=== PATIENT | female | born 1990 | race Caucasian/White ===

== ENCOUNTER 2016-10-26 10:51 | Outpatient (CLI) | payer OTHER ==
[~2016-10-26] VITALS: Ht 160 cm; Wt 68.4 kg
[~2016-10-26 10:51] MED LIST: ACET1TAB40 PO; CEPH-443 PO; PRED20TA PO
[2016-10-26 11:08] VITALS: BP 115/68; PULSE 93; RESP 18; Ht 160 cm; Wt 68.4 kg
[2016-10-26] MEDS ORDERED: PRENAT PO (11:10)
[2016-10-26] MEDS ORDERED: ONDANSETRON 4 MG INJ IV STA (11:16)
[2016-10-26] MEDS ORDERED: LACTATED RINGER'S 1,000 ML IV SCH (11:30)
[2016-10-26 11:52] LABS: ADD UMIC YES; UR BILIRUBIN (Dip) NEGATIVE (NEGATIVE); UR BLOOD (Dip) NEGATIVE (NEGATIVE); UR CLARITY CLEAR (CLEAR); UR COLOR YELLOW (YELLOW); UR GLUCOSE (Dip) NEGATIVE (NEGATIVE); UR KETONES (Dip) NEGATIVE (NEGATIVE); UR LEUKOCYTE ESTERASE (Dip) 1+ Leu/ul (NEGATIVE); UR NITRITE (Dip) NEGATIVE (NEGATIVE); UR TOTAL PROTEIN (Dip) NEGATIVE (NEGATIVE); UR UROBILINOGEN (Dip) 0.2 E.U./dL mg/dL (NEGATIVE)
[2016-10-26 11:54] LABS: UR SQUAMOUS EPITHELIAL CELL OCCASIONAL /HPF (FEW)
[2016-10-26 11:58] LABS: ABNORMAL IP MESSAGE 1; HEMOGLOBIN 12.2 g/dl (12.0-16.0); MEAN CORPUSCULAR HEMOGLOBIN 29.8 pg (29.0-33.0); MEAN CORPUSCULAR HGB CONC 32.1 g/dl (32.0-37.0); MEAN CORPUSCULAR VOLUME 92.7 fl (82.0-101.0); MEAN PLATELET VOLUME 9.5 fl (7.4-10.4); PLATELET COUNT 185 10^3/UL (140-415); POSITIVE DIFF @See below; RED CELL DISTRIBUTION WIDTH 13.4 % (11.5-14.5); WHITE BLOOD COUNT 11.8 10^3/ul (4.8-10.8)
[2016-10-26 12:23] LABS: ALBUMIN 3.5 g/dl (3.3-4.9); ALBUMIN/GLOBULIN RATIO 1.16; BILIRUBIN,INDIRECT 0.5 mg/dl (0-1.1); BILIRUBIN,TOTAL 0.5 mg/dl (0.2-1.3); CALCIUM 8.8 mg/dl (8.4-10.2); CREATININE 0.66 mg/dl (0.44-1.00); POTASSIUM 4.6 mmol/L (3.5-5.1); TOTAL PROTEIN 6.5 g/dl (6.1-8.1)
[2016-10-26 13:05] LABS: EOSINOPHILS % (M) 1 % (0-7); MONOCYTES % (M) 3 % (0-11); PLATELET ESTIMATE NORMAL
--- NOTE | 2016-10-26 16:36 | QN ---
Documentation Comment g1po 26 weeks co of N?V x6 hours vss exam wnl labs ua wnl a/p iup 26 weeks NV resolved dc home SONYA ROCHE MD Oct 26, 2016 16:36
--- NOTE | 2016-10-26 18:43 | TRIAGE ---
OB Triage Datetime Report Generated by CPN: 10/26/2016 18:43 Datetime: 10/26/2016 13:18 Stage of : OB Triage Datetime: 10/26/2016 13:08 Labor Evaluation Frequency: 0 Monitor Mode: External Pattern: Normal: <= 5 Contractions in 10 Minutes Resting Tone [place]: Relaxed Heart Rate FHR Baseline Rate: 135 Monitor Mode: External US Variability: Moderate 6-25 bpm Accelerations: 10X10 Decelerations: None Category: Category I Pain Assessment Pain Scale: 0 Pain Presence: None/Denies Pain Type: N/A Pain Goal: 3 Pain Relief Measures: Comfort Measures Datetime: 10/26/2016 12:00 Heart Rate FHR Baseline Rate: 155 Monitor Mode: External US Variability: Moderate 6-25 bpm Accelerations: 10X10 Decelerations: None Category: Category I Pain Assessment Pain Scale: 8 Pain Presence: Constant Pain Type: Sharp Pain Location: Abdomen Pain Goal: 3 Pain Relief Measures: Comfort Measures Datetime: 10/26/2016 11:12 Stage of : OB Triage Datetime: 10/26/2016 10:58 Stage of : OB Triage Assessment Type: Triage EGA: 26.0 Maternal Assessment Level of Consciousness: Fully Conscious DTR's/Clonus: DTRs 2+; No Clonus Headache: Denies Blurred Vision: No Respiratory Effort: Unlabored; Regular Rhythm; Equal Expansion Breath Sounds, Left: Clear and Equal Breath Sounds, Right: Clear and Equal Nausea/Vomiting: Denies RUQ Epigastric Pain: Denies Facial Edema: None Temperature Route: Axillary Fall Risk Assessment History of Falling: (0) No Secondary Diagnosis: (0) No Ambulatory Aid: (0) Bedrest/Nurse Assist IV Therapy: (0) No Gait: (0) Normal/Bedrest/Immobile Mental Status: (0) Oriented to Own Ability Fall Score: 0 Fall Risk Score Definition: No Risk: No action required Labor Evaluation Frequency: 0 Monitor Mode: External Pattern: Normal: <= 5 Contractions in 10 Minutes Resting Tone [place]: Relaxed Heart Rate FHR Baseline Rate: 135 Monitor Mode: External US Variability: Moderate 6-25 bpm Accelerations: None Decelerations: None Category: Category I Pain Assessment Pain Scale: 5 Pain Presence: Constant Pain Type: Ache Pain Location: Back Pain Goal: 3 Pain Relief Measures: Comfort Measures Datetime: 10/26/2016 10:57 Time of Arrival: 10/26/2016 10:40 Arrived By: Ambulatory Arrived From: Home Chief Complaint: C/O NAUSEA AND VOMITING X 6 HOURS, DENIES BLEEDING, LEAKING OR UC'S Movement: Present Contractions: Denies/Absent Rupture of Membranes: Denies Vaginal Bleeding: None Vaginal Discharge: Denies Recent Sexual Intercouse: Denies Abdominal Trauma: Not Applicable Patient Complaints: Nausea; Vomiting Time Provider Notified: 10/26/2016 11:12 Provider Notified: venus Initial Plan: MONITOR, iv hydration, cbc, cmp, zofran 4mg
== END 2016-10-26 14:00 | disposition home or self-care (01) ==
LOC: L-D 10:51 → OBT 10:51
DX: O21.0 Mild hyperemesis gravidarum (principal); Z3A.26 26 weeks gestation of pregnancy
CPT/HCPCS: 80053; 81001; 85025; 96361; 96365; J2405; J7120; Z7500; G0463